=== PATIENT | female | born 1970 | race Caucasian/White ===

== ENCOUNTER 2020-10-10 19:06 | Inpatient (IN) | payer BC, OTHER ==
[~2020-10-10] VITALS: Ht 167.6 cm; Wt 104.9 kg
[2020-10-11] MEDS ORDERED: ENOXAPARIN SOD 100 MG/1 ML SYRINGE SC ONE ×3 (02:30→04:30)
[2020-10-11 02:46] LABS: Basophils # (auto) 0.1 10 ^3/uL (0-0.2); Basophils % (auto) 0.4 % (0.0-2.0); Eosinophils # (auto) 0.1 10 ^3/uL (0-0.8); Eosinophils % (auto) 0.4 % (0.0-7.0); Hematocrit 43.4 % (36.0-46.0); Hemoglobin 14.4 g/dL (12.2-16.2); Lymphocytes # (auto) 4.4 10 ^3/uL (0.4-5.4); Lymphocytes % (auto) 37.2 % (10.0-50.0); Mean Corpuscular Hemoglobin 29.6 pg (28.0-32.0); Mean Corpuscular Hgb Conc. 33.3 g/dL (32.0-36.0); Mean Corpuscular Volume 89.1 fL (80.0-100.0); Monocytes # (auto) 0.6 10 ^3/uL (0-1.3); Monocytes % (auto) 5.4 % (0.0-12.0); Neutrophils # (auto) 6.6 10 ^3/uL (1.6-8.6); Neutrophils % (auto) 56.6 % (37.0-80.0); Nucleated Red Blood Cells % 0.1 %; Platelet Count (auto) 276 10^3/uL (140-450); Red Blood Cells 4.87 10^6/uL (4.0-5.20); Red Cell Distribution Width 12.5 % (11.8-14.3); White Blood Cell 11.7 10^3/uL (4.4-10.8)
[2020-10-11] MEDS ORDERED: LORazepam 0.5 MG TAB PO ONE ×2 (03:00→03:15)
[2020-10-11 03:03] LABS: INR 1.03 (0.9-1.15)
[2020-10-11 03:12] LABS: Albumin 3.8 g/dL (3.4-5.0); BUN/Creatinine Ratio 9.3; Potassium 4.4 mmol/L (3.5-5.1)
[2020-10-11 03:15] LABS: Bilirubin, Total 0.4 mg/dL (0.2-1.0); Total Protein 7.8 g/dL (6.4-8.2)
[2020-10-11] MEDS ORDERED: NITROGLYCERIN 0.4 MG SL TAB SL PRN (04:15)
[2020-10-11] MEDS ORDERED: TEMAZEPAM 15 MG CAP PO PRN (04:15)
[2020-10-11] MEDS ORDERED: DOCUSATE SOD 100 MG CAP PO PRN (04:15)
[2020-10-11] MEDS ORDERED: HYDROcodone-ACET 5/325MG TAB PO PRN (04:15)
[2020-10-11] MEDS ORDERED: ACETAMINOPHEN 325 MG TAB PO PRN (04:15)
[2020-10-11] MEDS ORDERED: ONDANSETRON HCL 4 MG/2 ML VIAL IV PRN (04:15)
[2020-10-11] MEDS ORDERED: MORPHINE SULF INJ 2 MG/ML SYRINGE 1ML IV PRN (04:15)
[2020-10-11] MEDS: SODIUM CHLOR 0.9% PF (SALINE LOCK) 10ML VIAL/SYR IV SCH ×3 (06:00→21:23)
[2020-10-11 07:27] LABS: Basophils # (auto) 0.1 10 ^3/uL (0-0.2); Calcium 8.8 mg/dL (8.5-10.1); Eosinophils # (auto) 0.1 10 ^3/uL (0-0.8); Eosinophils % (auto) 0.9 % (0.0-7.0); Hematocrit 43.2 % (36.0-46.0); Hemoglobin 14.5 g/dL (12.2-16.2); Lymphocytes # (auto) 4.5 10 ^3/uL (0.4-5.4); Mean Corpuscular Hemoglobin 29.8 pg (28.0-32.0); Mean Corpuscular Hgb Conc. 33.5 g/dL (32.0-36.0); Monocytes # (auto) 0.7 10 ^3/uL (0-1.3); Monocytes % (auto) 5.6 % (0.0-12.0); Neutrophils # (auto) 6.4 10 ^3/uL (1.6-8.6); Neutrophils % (auto) 54.5 % (37.0-80.0); Nucleated Red Blood Cells % 0.1 %; Platelet Count (auto) 270 10^3/uL (140-450); Potassium 4.1 mmol/L (3.5-5.1); Red Blood Cells 4.85 10^6/uL (4.0-5.20); Red Cell Distribution Width 12.6 % (11.8-14.3); White Blood Cell 11.7 10^3/uL (4.4-10.8)
[2020-10-11 07:31] LABS: Albumin 3.7 g/dL (3.4-5.0); BUN/Creatinine Ratio 8.5
[2020-10-11 07:34] LABS: Bilirubin, Total 0.6 mg/dL (0.2-1.0); Total Protein 7.6 g/dL (6.4-8.2)
[2020-10-11] MEDS: ZINC SULFATE 220mg CAP or TAB PO SCH (10:22)
[2020-10-11] MEDS: FAMOTIDINE 20 MG TAB PO SCH ×2 (10:23→21:23)
[2020-10-11] MEDS: MULTIPLE VITAMIN TAB PO SCH (10:23)
[2020-10-11] MEDS: ASCORBIC ACID 500 MG TAB PO SCH ×2 (10:27→21:22)
[2020-10-11] MEDS ORDERED: LORazepam 0.5 MG TAB PO PRN (15:45)
[2020-10-11 17:32] VITALS: BP 137/79
[2020-10-11 17:43] VITALS: BP 137/79
[2020-10-11] MEDS ORDERED: IOHEXOL 350 MG/ML 100ML IJ ONE (17:53)
[2020-10-11 20:00] VITALS: BP 112/67
[2020-10-11] MEDS: APIXABAN 5 MG TAB PO SCH (21:22)
[2020-10-11 22:00] VITALS: BP 115/69
[2020-10-12 05:00] VITALS: BP 123/70
[2020-10-12 05:54] LABS: Basophils # (auto) 0 10 ^3/uL (0-0.2); Basophils % (auto) 0.5 % (0.0-2.0); Eosinophils # (auto) 0.2 10 ^3/uL (0-0.8); Eosinophils % (auto) 2.3 % (0.0-7.0); Hematocrit 40.5 % (36.0-46.0); Hemoglobin 14.2 g/dL (12.2-16.2); Lymphocytes # (auto) 3.9 10 ^3/uL (0.4-5.4); Lymphocytes % (auto) 41.9 % (10.0-50.0); Mean Corpuscular Hemoglobin 31.3 pg (28.0-32.0); Mean Corpuscular Hgb Conc. 35.2 g/dL (32.0-36.0); Mean Corpuscular Volume 88.9 fL (80.0-100.0); Monocytes # (auto) 0.8 10 ^3/uL (0-1.3); Monocytes % (auto) 8.2 % (0.0-12.0); Neutrophils # (auto) 4.4 10 ^3/uL (1.6-8.6); Neutrophils % (auto) 47.1 % (37.0-80.0); Nucleated Red Blood Cells % 0.1 %; Platelet Count (auto) 219 10^3/uL (140-450); Red Blood Cells 4.55 10^6/uL (4.0-5.20); Red Cell Distribution Width 12.5 % (11.8-14.3); White Blood Cell 9.4 10^3/uL (4.4-10.8)
[2020-10-12 06:05] LABS: Potassium 4.2 mmol/L (3.5-5.1)
[2020-10-12] MEDS: SODIUM CHLOR 0.9% PF (SALINE LOCK) 10ML VIAL/SYR IV SCH ×2 (06:23→16:04)
[2020-10-12 06:44] LABS: Albumin 3.4 g/dL (3.4-5.0); BUN/Creatinine Ratio 11.2; Bilirubin, Total 0.5 mg/dL (0.2-1.0)
[2020-10-12] MEDS: ZINC SULFATE 220mg CAP or TAB PO SCH (08:13)
[2020-10-12] MEDS: APIXABAN 5 MG TAB PO SCH (08:14)
[2020-10-12] MEDS: MULTIPLE VITAMIN TAB PO SCH (08:14)
[2020-10-12] MEDS: FAMOTIDINE 20 MG TAB PO SCH (08:14)
[2020-10-12] MEDS: ASCORBIC ACID 500 MG TAB PO SCH (08:14)
[2020-10-12 09:00] VITALS: BP 104/72
[2020-10-12 12:50] VITALS: BP 110/73
[2020-10-18] MEDS ORDERED: APIXABAN 5 MG TAB PO SCH (22:00)
== END 2020-10-12 17:00 | disposition home or self-care (01) | DRG 300 ==
LOC: ER 19:06 → TELE 10-11 04:16 → TELE-EAST 10-11 17:33 → TELE-WESTW 10-11 17:36
PROVIDERS: ADMIT Nurse Practitioner Family; ATTEND Internal Medicine
DX: I82.622 Acute embolism and thrombosis of deep veins of left upper extremity (principal); R65.10 Systemic inflammatory response syndrome (SIRS) of non-infectious origin without acute organ dysfunction; D72.829 Elevated white blood cell count, unspecified; Z20.822 Contact with and (suspected) exposure to COVID-19; E66.01 Morbid (severe) obesity due to excess calories; F17.210 Nicotine dependence, cigarettes, uncomplicated; F41.1 Generalized anxiety disorder; N18.2 Chronic kidney disease, stage 2 (mild); R73.03 Prediabetes; R73.9 Hyperglycemia, unspecified; R74.01 Elevation of levels of liver transaminase levels; Z79.01 Long term (current) use of anticoagulants; Z80.3 Family history of malignant neoplasm of breast; Z90.49 Acquired absence of other specified parts of digestive tract; Z88.0 Allergy status to penicillin
CPT/HCPCS: 36415; 71275; 73201; 80053; 83036; 84484; 85025; 85610; 85730; 87426; 93005; 93971; 96372; G0378